=== PATIENT | female | born 1985 | race African-American/Black ===

== ENCOUNTER 2017-10-30 14:26 | Emergency (ER) | payer OTHER ==
--- NOTE | 2017-10-30 14:46 | PDOC ---
Rapid Medical Evaluation Time Seen by Provider: 10/30/17 14:45 Medical Evaluation: Allergies Allergy/AdvReac Type Severity Reaction Status Date / Time No Known Allergies Allergy Verified 10/12/15 09:29 10/30/17 14:45I I have performed a brief in-person evaluation of this patient. The patient presents with a chief complaint of: upper back pain s/p heavy lifting at work yesterday Pertinent physical exam findings:unremarkable I have ordered the following:nothing The patient will proceed to the ED for further evaluation. Discharge Disposition - Diagnosis Upper back strain Qualifiers: Encounter type: initial encounter Qualified Code(s): S29.012A - Strain of muscle and tendon of back wall of thorax, initial encounter - Referrals - Patient Instructions - Post Discharge Activity
[2017-10-30 15:02] VITALS: BP 128/78; PULSE 104; TEMP 98.6; BMI 19.4
[2017-10-30] MEDS ORDERED: KETOROLAC TROMETHAMINE 60 MG/2 ML VIAL IM ONE (16:20)
[2017-10-30] MEDS ORDERED: RANITIDINE HCL 150 MG TABLET (FP) PO ONE (16:20)
[2017-10-30] MEDS ORDERED: KETOROLAC TROMETHAMINE 60 MG/2 ML VIAL ONE (16:22)
[2017-10-30] MEDS ORDERED: RANITIDINE HCL 150 MG TABLET (FP) ONE (16:22)
--- NOTE | 2017-10-30 16:23 | PDOC ---
History of Present Illness - General Chief Complaint: Back Pain Stated Complaint: BACK PAIN Time Seen by Provider: 10/30/17 14:45 - History of Present Illness Initial Comments: 32-year-old female without any significant comorbidities presents for evaluation of back pain. She describes tightness in her thoracic spine after lifting a heavy bucket at work yesterday. She denies any radiating symptoms or prior problems with the back. There are no associated symptoms. 10/30/17 16:20 Past History - Past Medical History Allergies/Adverse Reactions: Allergies Allergy/AdvReac Type Severity Reaction Status Date / Time oxycodone [From Percocet] Allergy Verified 10/30/17 14:53 Home Medications: Ambulatory Orders Cyclobenzaprine HCl [Flexeril 10 mg] 10 mg PO HS PRN #10 tablet 10/30/17 Ibuprofen [Motrin -] 600 mg PO TID #30 tablet 10/30/17 Asthma: Yes (\) Cancer: No Cardiac Disorders: No Diabetes: No HTN: No Seizures: No Thyroid Disease: No - Suicide/Smoking/Psychosocial Hx Smoking History: Never smoked Have you smoked in the past 12 months: No Hx Alcohol Use: No Drug/Substance Use Hx: No Substance Use Type: None Hx Substance Use Treatment: No Review of Systems - Review of Systems Musculoskeletal: Yes: See HPI, Back Pain All Other Systems: Reviewed and Negative *Physical Exam - Vital Signs Last Vital Signs Temp Pulse Resp BP Pulse Ox 98.6 F 104 H 20 128/78 99 10/30/17 14:40 10/30/17 14:40 10/30/17 14:40 10/30/17 14:40 10/30/17 14:40 - Physical Exam Comments: Cervical spine range of motion is within normal limits mildly decreased thoracic range of motion. In both flexion and extension. She has 5 out of 5 strength including EPL interosseous muscles wrist flexion and extension biceps and deltoid in bilateral upper extremities. She has a negative Spurling maneuver no gross sensorimotor deficits. She has minimal thoracic musculature spasm 10/30/17 16:21 Medical Decision Making - Medical Decision Making This is a thoracic spine strain I will give her Toradol and Zantac send her home with a prescription for Flexeril and Motrin and have her follow-up with spine surgery. 10/30/17 16:22 10/30/17 16:37 Patient's pain was relieved with Toradol *DC/Admit/Observation/Transfer Diagnosis at time of Disposition: Upper back strain Qualifiers: Encounter type: initial encounter Qualified Code(s): S29.012A - Strain of muscle and tendon of back wall of thorax, initial encounter - Discharge Dispostion Disposition: HOME Condition at time of disposition: Stable Decision to Admit order: No - Prescriptions Prescriptions: Cyclobenzaprine HCl [Flexeril 10 mg] 10 mg PO HS PRN #10 tablet PRN Reason: Muscle Spasms Ibuprofen [Motrin -] 600 mg PO TID #30 tablet - Referrals Referrals: Coreen Garvin MD [Primary Care Provider] - Cameron Curran MD [Staff Physician] - - Patient Instructions Printed Discharge Instructions: DI for Back Strain or Sprain Additional Instructions: Return to the emergency room should her symptoms worsen or go unresolved. It's important few to follow-up with spine surgery for further evaluation and treatment options. I prescribed few a muscle relaxer which should be taken one tablet prior to bedtime as it will make you tired. Ago also prescribed few an anti-inflammatory which should help with your pain. Please take the anti- inflammatory with food and discontinue if it bothers her stomach. - Post Discharge Activity
== END 2017-10-30 16:39 | disposition home or self-care (01) ==
LOC: JER 14:26 → JERFT 14:26
DX: S29.012A Strain of muscle and tendon of back wall of thorax, initial encounter (principal); X58.XXXA Exposure to other specified factors, initial encounter; Y93.89 Activity, other specified; Y92.9 Unspecified place or not applicable
CPT/HCPCS: 99281-25

== ENCOUNTER 2018-08-05 15:42 | Inpatient (IN) | payer OTHER ==
[2018-08-05 16:14] VITALS: BMI 53.1
[2018-08-05] MEDS ORDERED: IBUPROFEN 400 MG TABLET (FP) PO ONE ×2 (18:46→18:50)
[2018-08-05 19:06] LABS: BASO % 0.5 % (0-2.0); EOS % 2.4 % (0-4.5); HEMATOCRIT 20.3 % (32.4-45.2); LYMPH % 22.7 % (8-40); MCHC 28.7 g/dl (32.0-36.0); MEAN CELL VOLUME 56.5 fl (80-96); MEAN PLT VOLUME 8.8 fl (7.5-11.1); MONO % 6.7 % (3.8-10.2); NEUT % 67.7 % (42.8-82.8); PLATELET COUNT 400 K/MM3 (134-434); RDW 20.6 % (11.6-15.6); WHITE BLOOD COUNT 10.6 K/mm3 (4.0-10.0)
[2018-08-05 19:09] LABS: MCH 16.2 pg (25.7-33.7)
[2018-08-05 19:10] LABS: HEMOGLOBIN 5.8 GM/dL (10.7-15.3)
[2018-08-05 19:32] LABS: ALBUMIN 3.3 g/dl (3.4-5.0); ALK PHOS 101 U/L (45-117); ANION GAP 6 MMOL/L (8-16); BILIRUBIN,TOTAL 0.2 mg/dL (0.2-1); BLOOD UREA NITROGEN 10 mg/dL (7-18); CALCIUM 8.3 mg/dL (8.5-10.1); CHLORIDE 104 mmol/L (98-107); CO2 26 mmol/L (21-32); CREATININE 0.6 mg/dL (0.55-1.3); GLUCOSE,RANDOM 98 mg/dL (74-106); POTASSIUM 3.7 mmol/L (3.5-5.1); SGOT/AST 6 U/L (15-37); SGPT/ALT 14 U/L (13-61); SODIUM 137 mmol/L (136-145); TOT PROT 7.3 g/dl (6.4-8.2)
[2018-08-05 19:36] LABS: ANISOCYTOSIS 2+; PLATELET ESTIMATE ADEQUATE
--- NOTE | 2018-08-05 20:26 | PDOC ---
History of Present Illness - General History Source: Patient, Spouse Exam Limitations: No Limitations <Marie Villar - Last Filed: 08/05/18 20:57> <Cassi Hartley - Last Filed: 08/05/18 22:46> - General Chief Complaint: Chest Pain Stated Complaint: CHEST PAIN Time Seen by Provider: 08/05/18 18:11 - History of Present Illness Initial Comments: 08/05/18 20:57 The patient is a 33 year old female with a past medical history of seasonal asthma who presents to the emergency department for evaluation of chest pain. Patient reports substernal chest pain described as constant, stabbing, and nonradiating, ranked 9/10 in severity over the last 24 hours. Patient states her chest pain began yesterday while she was working in [place]. Patient endorses dyspnea on exertion, specifically with movement, and intermittent episodes of lightheadedness. She states she tried sleeping but was unable to secondary to her pain. Patient denies taking medication for the aforementioned pain. She reports seeing her PCP for a flu shot earlier this month. She denies family history of cardiac disorders, recent strenuous activities, or trauma. Denies headache, fevers, chills, nausea, and vomiting. Denies diarrhea, constipation, urinary urgency/frequency. Denies history of alcohol, cigarette, or drug use. Allergies: No known allergies. Social History: No reported alcohol, cigarette, or drug use. Surgical History: Denies PCP: Not on staff, [address] [place] [address]. (Marie Villar) Past History <Marie Villar - Last Filed: 08/05/18 20:57> - Past Medical History Asthma: Yes (\) Cancer: No Cardiac Disorders: No COPD: No Diabetes: No HTN: No Seizures: No Thyroid Disease: No - Suicide/Smoking/Psychosocial Hx Smoking History: Never smoked Have you smoked in the past 12 months: No Hx Alcohol Use: No Drug/Substance Use Hx: No Substance Use Type: None Hx Substance Use Treatment: No <Cassi Hartley - Last Filed: 08/05/18 22:46> - Past Medical History Allergies/Adverse Reactions: Allergies Allergy/AdvReac Type Severity Reaction Status Date / Time No Known Allergies Allergy Verified 08/05/18 16:10 Review of Systems - Review of Systems Able to Perform ROS?: Yes <Marie Villar - Last Filed: 08/05/18 20:57> <Cassi Hartley - Last Filed: 08/05/18 22:46> - Review of Systems Comments:: 08/05/18 20:57 CONSTITUTIONAL: Absent: fever, chills, diaphoresis, generalized weakness, malaise, loss of appetite HEENT: Absent: rhinorrhea, nasal congestion, throat pain, throat swelling, difficulty swallowing, mouth swelling, ear pain, eye pain, visual Changes CARDIOVASCULAR: (+)Chest pain. (+)lightheadedness. Absent: syncope, palpitations, irregular heart rate, peripheral edema RESPIRATORY: Absent: cough, shortness of breath, dyspnea with exertion, orthopnea, wheezing, stridor, hemoptysis GASTROINTESTINAL: Absent: abdominal pain, abdominal distension, nausea, vomiting, diarrhea, constipation, melena, hematochezia GENITOURINARY: Absent: dysuria, frequency, urgency, hesitancy, hematuria, flank pain, genital pain MUSCULOSKELETAL: Absent: myalgia, arthralgia, joint swelling SKIN: Absent: rash, itching, pallor HEMATOLOGIC/IMMUNOLOGIC: Absent: easy bleeding, easy bruising, lymphadenopathy, frequent infections ENDOCRINE: Absent: unexplained weight gain, unexplained weight loss, heat intolerance, cold intolerance NEUROLOGIC: Absent: headache, focal weakness or paresthesias, dizziness, unsteady gait, seizure, mental status changes, bladder or bowel incontinence PSYCHIATRIC: Absent: anxiety, depression, suicidal or homicidal ideation, hallucinations. (Marei Villar) *Physical Exam <Marie Villar - Last Filed: 08/05/18 20:57> <Cassi Hartley - Last Filed: 08/05/18 22:46> - Vital Signs Last Vital Signs Temp Pulse Resp BP Pulse Ox 98 F 93 H 18 144/73 100 08/05/18 16:11 08/05/18 16:11 08/05/18 16:11 08/05/18 16:11 08/05/18 16:11 - Physical Exam Comments: 08/05/18 20:57 GENERAL: Well developed, morbidly obese. Awake and alert. No acute distress. HEENT: Normocephalic, atraumatic. PERRLA, EOMI. No conjunctival pallor. Sclera are non- icteric. Moist mucous membranes. NECK: Supple. Full ROM. No JVD. Carotid pulses 2+ and symmetric, without bruits. No thyromegaly. No lymphadenopathy. CARDIOVASCULAR: Regular rate and rhythm. No murmurs, rubs, or gallops. Distal pulses are 2+ and symmetric. PULMONARY: No evidence of respiratory distress. Lungs clear to auscultation bilaterally. No wheezing, rales or rhonchi. ABDOMINAL: Protuberant. Soft. Non-tender. No rebound or guarding. No organomegaly. MUSCULOSKELETAL Normal range of motion at all joints. No bony deformities or tenderness. No CVA tenderness. EXTREMITIES: No cyanosis. No clubbing. No edema. No calf tenderness. SKIN: Warm and dry. Normal capillary refill. No rashes. No jaundice. NEUROLOGICAL: Alert, awake, appropriate. Cranial nerves 2-12 intact. No deficits to light touch and temperature in face, upper extremities and lower extremities. No motor deficits in the in face, upper extremities and lower extremities. Normoreflexic in the upper and lower extremities. Normal speech. Toes are down- going bilaterally. Gait is normal without ataxia. PSYCHIATRIC: Cooperative. Good eye contact. Appropriate mood and affect. (Marie Villar) - Procedure Monitoring Vital Signs: Procedure Monitoring Vital Signs Temperature 98 F 08/05/18 16:11 Pulse Rate 93 H 08/05/18 16:11 Respiratory Rate 18 08/05/18 16:11 Blood Pressure 144/73 08/05/18 16:11 O2 Sat by Pulse Oximetry (%) 100 08/05/18 16:11 ED Treatment Course - LABORATORY CBC & Chemistry Diagram: 08/05/18 18:56 08/05/18 18:56 <Marie Villar - Last Filed: 08/05/18 20:57> - LABORATORY CBC & Chemistry Diagram: 08/05/18 18:56 08/05/18 18:56 <Cassi Hartley - Last Filed: 08/05/18 22:46> - ADDITIONAL ORDERS Additional order review: Laboratory Results 08/05/18 08/05/18 21:08 18:56 Sodium 137 Potassium 3.7 Chloride 104 Carbon Dioxide 26 Anion Gap 6 L BUN 10 Creatinine 0.6 Creat Clearance w eGFR 115.85 Random Glucose 98 Calcium 8.3 L Total Bilirubin 0.2 AST 6 L ALT 14 Alkaline Phosphatase 101 Creatine Kinase 34 Troponin I < 0.02 Total Protein 7.3 Albumin 3.3 L Blood Type O POSITIVE Antibody Screen Negative Crossmatch See Detail 08/05/18 18:56 RBC 3.60 MCV 56.5 L MCHC 28.7 L RDW 20.6 H MPV 8.8 Neutrophils % 67.7 Lymphocytes % 22.7 D Monocytes % 6.7 Eosinophils % 2.4 D Basophils % 0.5 - Medications Given in the ED: ED Medications Discontinued Medications Generic Name Dose Route Start Last Admin Trade Name José PRN Reason Stop Dose Admin Ibuprofen 800 mg 08/05/18 18:46 08/05/18 19:00 Motrin - PO 08/05/18 18:47 800 mg ONCE ONE Administration *DC/Admit/Observation/Transfer <Marie Villar - Last Filed: 08/05/18 20:57> - Discharge Dispostion Decision to Admit order: Yes <Cassi Hartley - Last Filed: 08/05/18 22:46> Diagnosis at time of Disposition: Exertional dyspnea, Substernal chest pain, Morbid obesity Anemia Qualifiers: Anemia type: other cause Other causes of anemia: other cause, not classified Qualified Code(s): D64.89 - Other specified anemias - Referrals Referrals: Marques Clayton MD [Primary Care Provider] - - Patient Instructions - Post Discharge Activity - Attestations Scribe Attestion: Documentation prepared by Marie Villar, acting as medical legal investigator for Cassi Hartley MD. (Marie Villar)
[2018-08-05] MEDS ORDERED: POLYETHYLENE GLYCOL 3350 119 GM BTL PO PRN (22:44)
[2018-08-05] MEDS ORDERED: ACETAMINOPHEN 325 MG TABLET (FP) PO PRN (22:44)
[2018-08-05] MEDS ORDERED: SODIUM CHLORIDE 1,000 ML IV SCH (22:45)
[2018-08-05 23:31] LABS: URINE APPEARANCE SLCLOUDY; URINE BILIRUBIN NEGATIVE (<2.0 mg/dL); URINE COLOR YELLOW; URINE GLUCOSE (UA) NEGATIVE (NEGATIVE); URINE KETONE NEGATIVE (NEGATIVE); URINE LEUK ESTERASE NEGATIVE (NEGATIVE); URINE NITRITE NEGATIVE (NEGATIVE); URINE PROTEIN 1+ (NEGATIVE); URINE UROBILINOGEN NEGATIVE mg/dL (0.2-1.0)
--- NOTE | 2018-08-05 23:33 | HP ---
Admitting History and Physical - Primary Care Physician PCP: Marques Clayton - Admission Chief Complaint: CHEST PAIN History of Present Illness: 33 YEAR OLD female with h/o anemia not on iron therapy for "many yrs" presents to ED for evaluation of mid-sternal chest pain, fatigue, dizziness and dyspnea on exertion x 2 weeks. Pt has never felt these symptoms before and denies fever/ chills, abd pain/N/D/SWAN, syncope or other neurological symptoms. Pt attempts to relieve symptoms with sleep, but upon awakening and performing ADLs she notes excessive fatigue and dyspnea. Over the last three months, Ms. Leavitt reports her menses have become increasingly heavy and longer. Since May 2018, her menses last 7days instead of 4 and she had noted increased clot burden as evidenced by changing at least 10 soaked pads per period day. 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 LMP 07/17/18. no hormonal contraceptive use and no prior miscarriage. In ED: Vitals BP 144/73, HR 93. T 98. RR 18. Wt 140kg, O2 sat 100% H/H 5.8/20.3, MCV 56. Trop < 0.02. EKG NSR 98bpm. non-ischemic. Urine HCG negative. Pt ordered for PRBC transfusion and admitted for further management. 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 Exercise: none. HCP : Steph Hunt [phone] Home Medications - Allergies Allergies/Adverse Reactions: Allergies Allergy/AdvReac Type Severity Reaction Status Date / Time No Known Allergies Allergy Verified 08/05/18 16:10 Family Disease History - Family Disease History Family Disease History: Other: Father (alive uknown), Mother (alive (46) well) Review of Systems - Review of Systems Constitutional: reports: Weakness Eyes: reports: No Symptoms HENT: reports: No Symptoms Neck: reports: No Symptoms Cardiovascular: reports: Chest Pain, Shortness of Breath Respiratory: reports: SOB on Exertion Gastrointestinal: reports: No Symptoms Genitourinary: reports: No Symptoms Breasts: reports: No Symptoms Reported Musculoskeletal: reports: No Symptoms Integumentary: reports: No Symptoms Neurological: reports: Dizziness, Weakness Endocrine: reports: No Symptoms Hematology/Lymphatic: reports: No Symptoms Psychiatric: reports: Altered Sleep Pattern Physical Examination Vital Signs: Vital Signs Temperature 98 F 08/05/18 16:11 Pulse Rate 93 H 08/05/18 16:11 Respiratory Rate 18 08/05/18 16:11 Blood Pressure 144/73 08/05/18 16:11 O2 Sat by Pulse Oximetry (%) 100 08/05/18 16:11 Constitutional: Yes: No Distress, Calm, Obese Eyes: Yes: EOM Intact, PERRL, Other (pale conjunctiva) HENT: Yes: Atraumatic, Normocephalic, Other (pale oral mucosa) Neck: Yes: Supple, Trachea Midline Cardiovascular: Yes: Regular Rate and Rhythm, Murmur (systolic murmur A/P region ) Respiratory: Yes: Regular, CTA Bilaterally Gastrointestinal: Yes: Soft, Abdomen, Obese ...Rectal Exam: Yes: Deferred Musculoskeletal: Yes: WNL Extremities: Yes: WNL Edema: No Peripheral Pulses WNL: Yes Peripheral Pulses: Left Radial: 2+, Right Radial: 2+ Integumentary: Yes: WNL Neurological: Yes: Alert, Oriented ...Motor Strength: WNL Psychiatric: Yes: Alert, Oriented Labs: CBC, BMP 08/05/18 18:56 08/05/18 18:56 Imaging - Results Ultrasound: Pending (transvaginal US ordered) Problem List - Problems (1) Menorrhagia Assessment/Plan: transvaginal sono ordered INSIDE UPHOLSTERER consult Code(s): N92.0 - EXCESSIVE AND FREQUENT MENSTRUATION WITH REGULAR CYCLE (2) Anemia Assessment/Plan: repeat CBC to confirm low H/H, iron studies and hgb electrophoresis two units PRBC overnight start iron + vitamin C daily heme consult Code(s): D64.9 - ANEMIA, UNSPECIFIED Qualifiers: Anemia type: other cause Other causes of anemia: other cause, not classified Qualified Code(s): D64.89 - Other specified anemias (3) Exertional dyspnea Assessment/Plan: echo ordered 2L NC PRN Code(s): R06.09 - OTHER FORMS OF DYSPNEA (4) Substernal chest pain Assessment/Plan: Serial EKGs trend troponins consider cards consult if cardiac enzymes + Code(s): R07.2 - PRECORDIAL PAIN Assessment/Plan PPX: - bowel regimen with senna and colace - H2B daily - No AC due to low H/H, pt can ambulate DISPO -Full code Visit type - Emergency Visit Emergency Visit: Yes Care time: The patient presented to the Emergency Department on the above date and was hospitalized for further evaluation of their emergent condition. - New Patient This patient is new to me today: Yes Date on this admission: 08/06/18 - Critical Care Critical Care patient: No
[2018-08-05 23:36] LABS: EPI CELLS MODERATE /HPF (FEW); URINE MUCUS FEW
[2018-08-05] MEDS ORDERED: MAG HYDROX/AL HYDROX/SIMETH 30 ML UNIT-DOSE CUP PO PRN (23:40)
[2018-08-06 06:50] LABS: BASO % 0.5 % (0-2.0); EOS % 1.7 % (0-4.5); HEMATOCRIT 20.6 % (32.4-45.2); LYMPH % 21.3 % (8-40); MCHC 29.8 g/dl (32.0-36.0); MEAN CELL VOLUME 58.2 fl (80-96); MEAN PLT VOLUME 9.1 fl (7.5-11.1); MONO % 5.7 % (3.8-10.2); NEUT % 70.8 % (42.8-82.8); PLATELET COUNT 379 K/MM3 (134-434); RBC 3.53 M/mm3 (3.60-5.2); RDW 22.4 % (11.6-15.6); WHITE BLOOD COUNT 11.4 K/mm3 (4.0-10.0)
[2018-08-06 07:20] LABS: HEMOGLOBIN 6.1 GM/dL (10.7-15.3); MCH 17.4 pg (25.7-33.7)
[2018-08-06 07:31] LABS: INR 1.04 (0.83-1.09); PROTHROMBIN TIME (PATIENT) 12.3 SEC (9.7-13.0)
[2018-08-06 07:33] LABS: ACTIVATED PTT 30.7 SECONDS (25.2-36.5)
[2018-08-06 07:53] LABS: ALBUMIN 3.3 g/dl (3.4-5.0); ALK PHOS 98 U/L (45-117); ANION GAP 6 MMOL/L (8-16); BLOOD UREA NITROGEN 10 mg/dL (7-18); CALCIUM 8.4 mg/dL (8.5-10.1); CHLORIDE 105 mmol/L (98-107); CO2 24 mmol/L (21-32); CREATININE 0.5 mg/dL (0.55-1.3); GLUCOSE,RANDOM 91 mg/dL (74-106); MAGNESIUM 2.2 mg/dL (1.8-2.4); PHOSPHOROUS 3.8 mg/dL (2.5-4.9); POTASSIUM 3.9 mmol/L (3.5-5.1); SGOT/AST 7 U/L (15-37); SGPT/ALT 14 U/L (13-61); SODIUM 135 mmol/L (136-145); TOT PROT 7.3 g/dl (6.4-8.2)
[2018-08-06] MEDS ORDERED: DOCUSATE SODIUM 100 MG CAPSULE (FP) PO SCH (10:00)
[2018-08-06] MEDS ORDERED: RANITIDINE HCL 150 MG TABLET (FP) PO SCH ×2 (10:00)
[2018-08-06] MEDS ORDERED: FERROUS GLUCONATE 324 MG TAB (FP) PO SCH (10:00)
[2018-08-06] MEDS ORDERED: ASCORBIC ACID 500 MG TABLET (FP) PO SCH (10:00)
--- NOTE | 2018-08-06 11:16 | PN ---
Progress Note, Physician Chief Complaint: Anemia History of Present Illness: Previous notes and events reviewed awake and alert NAD Hg 6.1 after transfused 1U PRBC, 2nd unit currently transfusing denies chest pain, dizziness, palpitations - Current Medication List Current Medications: Active Medications Acetaminophen (Tylenol -) 650 mg PO Q6H PRN PRN Reason: FEVER Al Hydroxide/Mg Hydroxide (Mylanta Oral Suspension -) 30 ml PO Q6H PRN PRN Reason: DYSPEPSIA Ascorbic Acid (Vitamin C -) 500 mg PO DAILY [facility] Last Admin: 08/06/18 10:19 Dose: 500 mg Docusate Sodium (Colace -) 100 mg PO DAILY [facility] Last Admin: 08/06/18 10:19 Dose: 100 mg Ferrous Gluconate (Fergon -) 324 mg PO DAILY [facility] Last Admin: 08/06/18 10:19 Dose: 324 mg Sodium Chloride (Normal Saline -) 1,000 mls @ 100 mls/hr IV ASDIR [facility] Last Admin: 08/05/18 23:24 Dose: 100 mls/hr Polyethylene Glycol (Miralax (For Daily Use) -) 17 gm PO DAILY PRN PRN Reason: CONSTIPATION Ranitidine HCl (Zantac -) 150 mg PO DAILY [facility] Last Admin: 08/06/18 10:19 Dose: 150 mg Senna (Senna -) 2 tab PO [facility] - Objective Vital Signs: Vital Signs Temperature 97.7 F 08/06/18 10:02 Pulse Rate 85 08/06/18 10:02 Respiratory Rate 18 08/06/18 10:02 Blood Pressure 112/54 L 08/06/18 10:02 O2 Sat by Pulse Oximetry (%) 99 08/06/18 10:02 Constitutional: Yes: No Distress, Calm, Obese Eyes: Yes: Conjunctiva Clear HENT: Yes: Atraumatic Cardiovascular: Yes: Regular Rate and Rhythm Respiratory: Yes: Regular, CTA Bilaterally Gastrointestinal: Yes: Normal Bowel Sounds, Soft, Abdomen, Obese Extremities: Yes: WNL Edema: No Neurological: Yes: Alert, Oriented Psychiatric: Yes: Alert, Oriented Labs: CBC, BMP 08/06/18 05:25 08/06/18 05:25 INR, PTT INR 1.04 (0.83-1.09) 08/06/18 05:25 Problem List - Problems (1) Anemia Assessment/Plan: -Hg 5.8-6.1 after 1 unit PRBC transfused, currently receiving 2nd unit -repeat CBC after 2nd unit PRBC finished transfusing -Hematology consult placed -iron studies and Hg electrophoresis pending -ferrous sulfate daily Code(s): D64.9 - ANEMIA, UNSPECIFIED Qualifiers: Anemia type: other cause Other causes of anemia: other cause, not classified Qualified Code(s): D64.89 - Other specified anemias (2) Menorrhagia Assessment/Plan: -BUILDER OPERATOR consult -transvaginal US show fibroid uterus and small right ovarion cyst Code(s): N92.0 - EXCESSIVE AND FREQUENT MENSTRUATION WITH REGULAR CYCLE (3) Substernal chest pain Assessment/Plan: -serial EKGs -troponin neg x 2 Code(s): R07.2 - PRECORDIAL PAIN (4) Exertional dyspnea Assessment/Plan: -echo ordered -O2 via NC PRN for SOB Code(s): R06.09 - OTHER FORMS OF DYSPNEA Assessment/Plan see problem list dvt ppx
--- NOTE | 2018-08-06 12:09 | EKG ---
Test Reason : Blood Pressure : / mmHG Vent. Rate : 098 BPM Atrial Rate : 098 BPM P-R Int : 152 ms QRS Dur : 102 ms QT Int : 356 ms P-R-T Axes : 048 015 026 degrees QTc Int : 454 ms NORMAL SINUS RHYTHM POSSIBLE LEFT ATRIAL ENLARGEMENT INCOMPLETE RIGHT BUNDLE BRANCH BLOCK BORDERLINE ECG NO PREVIOUS ECGS AVAILABLE Confirmed by PATY KEENE MD ([id number]) on 08/06/2018 12:08:44 PM Referred By: Confirmed By:PATY KEENE MD
--- NOTE | 2018-08-06 14:38 | CON.OBG ---
Consult Consult Specialty:: TROLLEY WIRE INSTALLER Reason for Consultation:: Prolonged menses / Anemia - History of Present Illness Chief Complaint: Dizziness History of Present Illness: 33 YEAR OLD female with h/o anemia not on iron therapy for "many yrs" presents to ED for evaluation of mid-sternal chest pain, fatigue, dizziness and dyspnea on exertion x 2 weeks. Pt has never felt these symptoms before and denies fever/ chills, abd pain/N/D/SWAN, syncope or other neurological symptoms. Pt attempts to relieve symptoms with sleep, but upon awakening and performing ADLs she notes excessive fatigue and dyspnea. Over the last three months, Ms. Leavitt reports her menses have become increasingly heavy and longer. Since May 2018, her menses last 7days instead of 4 and she had noted increased clot burden as evidenced by changing at least 10 soaked pads per period day. 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 LMP 07/17/18. no hormonal contraceptive use and no prior miscarriage. I came to see patient, she's receiving blood transfusion. She states that she's feeling much better and wants to be discharge home to be with her young children. Pelvic sonogram reviewed, there's evidence of an enlarged uterus c/o Leiomyoma of the uterus. Extensive discussion with patient. She was advised to see a TROLLEY WIRE INSTALLER as outpatient after blood transfusion. 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 History of Recent Travel: No Home Medications - Allergies Allergies/Adverse Reactions: Allergies Allergy/AdvReac Type Severity Reaction Status Date / Time No Known Allergies Allergy Verified 08/05/18 16:10 - Home Medications Home Medications: Ambulatory Orders NK [No Known Home Medication] 08/06/18 Family Disease History - Family Disease History Family History: Unremarkable Family Disease History: Other: Father (alive uknown), Mother (alive (46) well) Review of Systems - Review of Systems Constitutional: reports: No Symptoms Eyes: reports: No Symptoms HENT: reports: No Symptoms Neck: reports: No Symptoms Cardiovascular: reports: No Symptoms Respiratory: reports: No Symptoms Gastrointestinal: reports: No Symptoms Breasts: reports: No Symptoms Reported Musculoskeletal: reports: No Symptoms Integumentary: reports: No Symptoms Neurological: reports: No Symptoms Psychiatric: reports: No Symptoms Pain Intensity: 0 Physical Exam-TROLLEY WIRE INSTALLER Vital Signs: Vital Signs Temperature 97.7 F 08/06/18 10:02 Pulse Rate 85 08/06/18 10:02 Respiratory Rate 18 08/06/18 10:02 Blood Pressure 112/54 L 08/06/18 10:02 O2 Sat by Pulse Oximetry (%) 99 08/06/18 10:02 Constitutional: Yes: Calm, Obese Eyes: Yes: Conjunctiva Clear HENT: Yes: Atraumatic Neck: Yes: Supple Cardiovascular: Yes: Regular Rate and Rhythm Respiratory: Yes: Regular Gastrointestinal: Yes: Normal Bowel Sounds Pelvis: Yes: WNL External Genitalia: Yes: Normal Vaginal Exam: Yes: Normal Cervix: Yes: Normal Uterus: Yes: Firm Neurological: Yes: Alert, Oriented Psychiatric: Yes: Alert, Oriented Labs: CBC, BMP 08/06/18 05:25 08/06/18 05:25 Assessment/Plan Menorrhagia Severe anemia Leiomyoma of the uterus Status post blood transfusion To be seen by TROLLEY WIRE INSTALLER as outpatient for possible myomectomy.
--- NOTE | 2018-08-06 15:45 | ECHO ---
Name: KESHIA, NARISSA Exam:Adult Echocardiogram Study Date: 08/06/2018 01:22 PM Age: 33 yrs Height: 64 in Weight: 310 lb BSA: 2.4 m2 MMode/2D Measurements & Calculations IVSd: 0.80 cm Ao root diam: 2.4 cm LVIDd: 5.4 cm LA dimension: 3.8 cm LVIDs: 3.3 cm LVPWd: 0.79 cm EDV(Teich): 139.1 ml LVOT diam: 2.0 cm ESV(Teich): 43.0 ml LAV (MOD-bp): 85.8 ml Doppler Measurements & Calculations Ao V2 max: 293.9 cm/sec LV V1 max P.2 mmHg Ao max P.5 mmHg LV V1 mean P.2 mmHg Ao V2 mean: 196.7 cm/sec LV V1 max: 113.7 cm/sec Ao mean P.2 mmHg LV V1 mean: 84.3 cm/sec Ao V2 VTI: 62.3 cm LV V1 VTI: 26.1 cm ENMA(I,D): 1.3 cm2 ENMA(V,D): 1.2 cm2 MR max eric: 431.4 cm/sec SV(LVOT): 80.1 ml MR max P.5 mmHg TR max eric: 243.0 cm/sec PA V2 max: 139.8 cm/sec TR max P.8 mmHg PA max P.8 mmHg Med Peak E' Eric: 11.2 cm/sec Lat Peak E' Eric: 13.1 cm/sec Procedure A two-dimensional transthoracic echocardiogram with color flow and Doppler was performed. Left Ventricle The left ventricular size, thickness and function are normal. The left ventricular ejection fraction is normal. Left Ventricular Filling pattern is normal for age. The left ventricular wall motion is avril l. Right Ventricle The right ventricle is normal in size and function. Atria Normal left and right atrial size and function. The atrial septum is aneurysmal. Mitral Valve There is mild mitral valve thickening. There is no mitral valve stenosis. There is trace to mild mitr al regurgitation. Tricuspid Valve The tricuspid valve is normal in structure and function. There is no tricuspid stenosis. There is mod erate tricuspid regurgitation. Right ventricular systolic pressure is normal. Aortic Valve The aortic valve is not well visualized. No hemodynamically significant valvular aortic stenosis. No aortic regurgitation is present. Pulmonic Valve The pulmonic valve is not well visualized. Great Vessels The aortic root is normal size. Pericardium/Pleura There is no pericardial effusion. Interpretation Summary The left ventricular size, thickness and function are normal The left ventricular ejection fraction is normal. The left ventricular wall motion is normal. Right ventricular systolic pressure is normal. There is moderate tricuspid regurgitation. The atrial septum is aneurysmal. Normal left and right atrial size and function. Left Ventricular Filling pattern is normal for age. There is trace to mild mitral regurgitation. MD Bill Shea 08/06/2018 03:44 PM
[2018-08-06 17:35] LABS: BASO % 0.5 % (0-2.0); EOS % 1.6 % (0-4.5); HEMATOCRIT 23.3 % (32.4-45.2); HEMOGLOBIN 7.1 GM/dL (10.7-15.3); LYMPH % 17.8 % (8-40); MCHC 30.4 g/dl (32.0-36.0); MEAN CELL VOLUME 60.4 fl (80-96); MEAN PLT VOLUME 8.7 fl (7.5-11.1); MONO % 4.6 % (3.8-10.2); NEUT % 75.5 % (42.8-82.8); PLATELET COUNT 379 K/MM3 (134-434); RBC 3.86 M/mm3 (3.60-5.2); RDW 25.7 % (11.6-15.6); WHITE BLOOD COUNT 11.3 K/mm3 (4.0-10.0)
[2018-08-06 17:37] LABS: ADD RBC MORPHOLOGY YES; MCH 18.4 pg (25.7-33.7)
[2018-08-06 18:00] LABS: ANISOCYTOSIS 3+; OVALOCYTE 1+; PLATELET ESTIMATE ADEQUATE; TARGET CELLS 1+
[2018-08-06 19:46] VITALS: BP 143/70; PULSE 85; TEMP 98.1
--- NOTE | 2018-08-06 20:00 | PN ---
Progress Note (short form) - Note Progress Note: Patient seen and examined 33 year old female presents with chest pain and SOB with profound anemia with Hb 5.8 g. Has received 2 units of packed cells and chest pain and SOB have abated. History of menorrhagia. Menarche at age 11 with normal menses q month until June and July of this year. Usual 4 day period now 7 days with clots., Takes occasional advil for headaches otherwise no meds. No family history of cancer or blood disorders. Born in [facility] and came to [facility] at age 18. No smoking, drinking or illicit drugs. No noxious exposures. Last Vital Signs Temp Pulse Resp BP Pulse Ox 98.1 F 85 19 143/70 98 08/06/18 19:46 08/06/18 19:46 08/06/18 19:46 08/06/18 19:46 08/06/18 19:46 HEENT: BELLA, EOM Intact Oropharynx: No thrush, No mucositis Neck: Supple Nodes: Without adenopathy Breasts: Without masses Cor: RSR, No murmurs, No gallops Lungs: Clear to P&A Abd: Soft, Normal bowel sounds, No organomegaly Ext:No significant edema Skin: No rashes, Integument intact s/p 2 units of packed cells Sono - small right ovarian cyst and large fibroid. Current Medications Generic Name Dose Route Start Last Admin Trade Name Freq PRN Reason Stop Dose Admin Acetaminophen 650 mg 08/05/18 22:44 Tylenol - PO Q6H PRN FEVER Al Hydroxide/Mg Hydroxide 30 ml 08/05/18 23:40 Mylanta Oral Suspension - PO Q6H PRN DYSPEPSIA Ascorbic Acid 500 mg 08/06/18 10:00 08/06/18 10:19 Vitamin C - PO 500 mg DAILY DARYL Administration Docusate Sodium 100 mg 08/06/18 10:00 08/06/18 10:19 Colace - PO 100 mg DAILY DARYL Administration Ferrous Gluconate 324 mg 08/06/18 10:00 08/06/18 10:19 Fergon - PO 324 mg DAILY DARYL Administration Sodium Chloride 1,000 mls @ 100 mls/hr 08/05/18 22:45 08/05/18 23:24 Normal Saline - IV 100 mls/hr ASDIR DARYL Administration Polyethylene Glycol 17 gm 08/05/18 22:44 Miralax (For Daily Use) - PO DAILY PRN CONSTIPATION Ranitidine HCl 150 mg 08/06/18 10:00 08/06/18 10:19 Zantac - PO 150 mg DAILY DARYL Administration Senna 2 tab 08/06/18 22:00 Senna - PO HS DARYL CBC, BMP 08/06/18 17:20 08/06/18 05:25 Impression : Hypo/micro anemia likely secondary to blood loss from menorrhagia. S/P 2 units of packed cells. If patient remains would give IV venofer. 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 HFE ordered. Will add celiac panel for Fe++ deficiency.
--- NOTE | 2018-08-06 20:24 | CONS ---
DATE OF CONSULTATION: 08/06/2018 This 33-year-old female was seen in the emergency room. She presented with significant anemia with chest pain and shortness of breath. Initial hemoglobin was 5.8. Subsequently, the patient has received 2 units of packed cells and the chest pain and shortness of breath have improved. SOCIAL HISTORY: The patient was born in [facility] and came to the [facility] at age 18. She works at [employer]. She is a nonsmoker, nondrinker, and denies illicit drugs. She has 3 children. FAMILY HISTORY: Includes a mother with diabetes. Father unknown. No history of cancer or blood problems in the family. MEDICATIONS: Include Motrin for headaches. ALLERGIES: There are no known allergies. Patient has no epistaxis. She has no GI or rectal bleeding. Patient had menarche at age 18. She has monthly periods for 4 days. In June or July had heavier periods with menses x7 days with clots on the last 1-2 days on both occasions. Patient underwent a pelvic and transvaginal sonogram with a small right ovarian cyst and large fibroids. REVIEW OF SYSTEMS: Some headaches. No diplopia. No epistaxis. No dysphagia. No chest pain or shortness of breath, status post 2 units, but previously presented with that. No nausea, vomiting, diarrhea, constipation, or melena. No dysuria or hematuria. No back pain, lung pain. No numbness or tingling. PHYSICAL EXAMINATION: General: The patient is obese. Vital Signs: BP 143/70, pulse 85, respiratory rate 19, afebrile. HEENT: PERRLA, EOM intact. Oropharynx unremarkable. Neck: No cervical or supraclavicular nodes. Lungs: Clear to percussion and auscultation without rales or rhonchi. Cardiac: RSR without murmurs or gallops. Breasts: Pendulous. No dominant masses, dimpling, or retraction. Abdomen: Soft, no organomegaly or masses. Extremities: No significant edema. LABORATORY: WBC 10.6, hemoglobin 5.8, hematocrit 20.3, MCV 56, MCH 16.2, platelets 400,000, 67 polys, 22 lymphocytes, 6 monocytes, 2 eosinophils, 3+ hyperchromia. Transfusion of packed cells showed hemoglobin 7.1, WBC 11.3, MCV 60, platelets 379,000. Differential showed 75 polys, 18 lymphocytes, 4 monocytes. INR 1.04. Chemistries: 135 sodium, potassium 3.9, chloride 105, CO2 24, creatinine 0.5. Glucose 91, calcium 8.4, phosphorous 3.8, magnesium 2.2. Iron studies are pending. Bilirubin 1, AST 7, ALT 14, alkaline phosphatase 98, protein 7.3, albumin 3.3. Urine shows 1+ proteinuria. IMPRESSION: A 33-year-old who presents with menorrhagia with severe hypochromic microcytic anemia compatible with iron deficiency, likely secondary to fibroids. Gynecologic examination followup seems appropriate. Hemoglobin electrophoresis, celiac disease. Patient can receive IV Venofer if she remains in the hospital. Otherwise, overlying therapy and follow up with PHYSICAL THERAPY PROFESSOR. Thank you. BOO LOPEZ M.D. SOCO/[id number]
--- NOTE | 2018-08-06 20:44 | HOSP ---
Subjective - Review of Symptoms Events since last encounter: Hospitalist Encounter 19:45 Was notified by the RN that the patient requests to sign out AMA, due to childcare issues Subjective: Arrived to the holding room, patient reports having early childhood educator aide issues and is feeling better and wants to leave. Patient denies SOB, CP, palpitations, lightheadedness, dizziness. VSS, patient ambulated in the holding area with a steady gait. Patient advised of risks and dangers of leaving the hospital- Syncope, . Patient expressed understanding. Patient was advised to f/u with her PCP, GLOBAL LEAD and Eyeglass Lens Generator Patient signed AMA Rx- sent to [facility]- Ferrous Sulfate, Colace Physical Examination Vital Signs: Vital Signs Temperature 98.1 F 08/06/18 19:46 Pulse Rate 85 08/06/18 19:46 Respiratory Rate 08/06/18 19:46 Blood Pressure 143/70 08/06/18 19:46 O2 Sat by Pulse Oximetry (%) 98 08/06/18 19:46 Constitutional: Yes: Well Nourished, No Distress, Calm, Obese Eyes: Yes: WNL, Conjunctiva Clear, EOM Intact, PERRL HENT: Yes: WNL, Atraumatic, Normocephalic Neck: Yes: WNL, Supple, Trachea Midline Cardiovascular: Yes: WNL, Regular Rate and Rhythm, S1, S2 Respiratory: Yes: WNL, Regular, CTA Bilaterally Gastrointestinal: Yes: WNL, Normal Bowel Sounds, Soft, Abdomen, Obese Musculoskeletal: Yes: WNL Extremities: Yes: WNL Neurological: Yes: WNL, Alert, Oriented ...Motor Strength: WNL Psychiatric: Yes: WNL, Alert, Oriented Labs: CBC, BMP 08/06/18 17:20 08/06/18 05:25
[2018-08-06] MEDS ORDERED: SENNOSIDES 8.6MG TABLET (FP) PO SCH (22:00)
[2018-08-07 04:15] LABS: SERUM IRON SATURATION 22 % (15-55); TOTAL IRON BINDING CAPACITY 504 ug/dL (250-450); UIBC 392 ug/dL (131-425)
--- NOTE | 2018-08-07 09:10 | DS ---
Physical Examination Vital Signs: Vital Signs Temperature 98.1 F 08/06/18 19:46 Pulse Rate 85 08/06/18 19:46 Respiratory Rate 19 08/06/18 19:46 Blood Pressure 143/70 08/06/18 19:46 O2 Sat by Pulse Oximetry (%) 98 08/06/18 19:46 Findings/Remarks: SIGNED AMA Labs: CBC, BMP 08/06/18 17:20 08/06/18 05:25 Discharge Summary Reason For Visit: CHEST PAIN ANEMIA MORBID OBESITY DYSPNEA ON EXERT Current Active Problems Anemia (Acute) Exertional dyspnea (Acute) Menorrhagia (Acute) Morbid obesity (Acute) Substernal chest pain (Acute) Condition: Unchanged/Unknown - Instructions Diet, Activity, Other Instructions: Follow Up with your PCP in 1-2 days Follow Up with MISCELLANEOUS MACHINE OPERATOR, Hematology, Cardiology this week. Return to the ED for Chest Pain, SOB, Dizziness or any other worsening condition Take your Iron and Stool Softener as prescribed Disposition: AGAINST MEDICAL ADVICE - Home Medications Comprehensive Discharge Medication List: Ambulatory Orders Docusate Sodium [Colace] 100 mg PO DAILY #30 capsule 08/06/18 Ferrous Sulfate [Iron] 325 mg PO DAILY #30 tablet 08/06/18
[2018-08-08 14:14] LABS: HGB SOLUBILITY Negative (Negative); Hgb C 0 % (0.0); Hgb F 0 % (0.0-2.0); Hgb S 0 % (0.0)
== END 2018-08-06 21:03 | disposition left against medical advice (07) | DRG 663 ==
LOC: JER 15:42 → JERBED 22:46 → OBSVTOIN 08-06 04:30
PROVIDERS: ADMIT Internal Medicine; ATTEND Family Medicine
PROC: 30233N1 Transfusion of Nonautologous Red Blood Cells into Peripheral Vein, Percutaneous Approach (ICD-10-PCS; principal; 2018-08-05)
DX: D50.0 Iron deficiency anemia secondary to blood loss (chronic) (principal); E66.01 Morbid (severe) obesity due to excess calories; Z68.43 Body mass index [BMI] 50.0-59.9, adult; N92.0 Excessive and frequent menstruation with regular cycle; R06.09 Other forms of dyspnea; D64.89 Other specified anemias; D25.9 Leiomyoma of uterus, unspecified
CPT/HCPCS: 36415; 36430; 36511; 76830-TC; 80053; 81003; 81015; 82550; 82553; 82728; 83021; 83036; 83540; 83550; 83735; 84100; 84479; 84484; 84703; 85025; 85610; 85660; 85730; 86850; 86900; 86901; 86922; 93005; 93010; 93306-TC; 99284-25; G0378; J7030; P9038; P9058

== ENCOUNTER 2019-01-08 18:13 | Emergency (ER) | payer OTHER ==
[2019-01-08 18:32] VITALS: BP 106/80; PULSE 90; TEMP 98.1; BMI 57.8
--- NOTE | 2019-01-08 18:34 | PDOC ---
Rapid Medical Evaluation Chief Complaint: Pain Time Seen by Provider: 01/08/19 18:31 Medical Evaluation: Allergies Allergy/AdvReac Type Severity Reaction Status Date / Time No Known Allergies Allergy Verified 01/08/19 18:25 Vital Signs Temp Pulse Resp BP Pulse Ox 98.1 F 90 17 106/80 100 01/08/19 18:25 01/08/19 18:25 01/08/19 18:25 01/08/19 18:25 01/08/19 18:25 01/08/19 18:31 PT C/O: lower abd cramping and bleeding, hx fibroids pending removal , here to get something for pain since psychometric examiner was not in office today, took tylenol and alleve with no effect PT ON BRIEF EXAM: vss, mild mid suprapaubic tenderness MRI reviewed from 01/03-- large fibroids largest measuring 10.5 cm PT ORDERED FOR: ua, u cx, upreg, percocet PT TO PROCEED TO THE ED 01/08/19 18:35 Discharge Disposition - Diagnosis Fibroids - Discharge Dispostion Last Admission D/C Date: 08/06/18 - Referrals Referrals: Coreen Garvin MD [Primary Care Provider] - - Patient Instructions - Post Discharge Activity
[2019-01-08] MEDS ORDERED: KETOROLAC TROMETHAMINE 60 MG/2 ML VIAL IM ONE (20:29)
[2019-01-08] MEDS ORDERED: KETOROLAC TROMETHAMINE 60 MG/2 ML VIAL ONE (20:31)
--- NOTE | 2019-01-08 20:39 | PDOC ---
History of Present Illness - General Chief Complaint: Pain Stated Complaint: ABD PAIN Time Seen by Provider: 01/08/19 18:31 History Source: Patient Exam Limitations: Clinical Condition - History of Present Illness Initial Comments: 01/08/19 20:45 Patient with history of uterine fibroids being followed up with TRAIN GATE ATTENDANT and being scheduled for myomectomy next month present with complaint of cramping lower abdominal pain with menstruation since 2 days ago. Patient report has been excessive bleeding with menstrual period due to uterine fibroids and pain with menstruation. Patient report using 10pads/day with her menstrual period which she is not fully soaked before she changed the pad. Denies dizziness, palpitations, urinary frequency, dysuria, SOB, lightheadedness, weakness, CP Timing/Duration: other (2 days) Past History - Past Medical History Allergies/Adverse Reactions: Allergies Allergy/AdvReac Type Severity Reaction Status Date / Time No Known Allergies Allergy Verified 01/08/19 18:40 Home Medications: Ambulatory Orders Docusate Sodium [Colace] 100 mg PO DAILY #30 capsule 08/06/18 Ferrous Sulfate [Iron] 325 mg PO DAILY #30 tablet 08/06/18 Ketorolac Tromethamine [Toradol] 10 mg PO TID PRN #21 tablet 01/08/19 Asthma: Yes (\) Cancer: No Cardiac Disorders: No COPD: No Diabetes: No HTN: No Seizures: No Thyroid Disease: No - Immunization History Immunization Up to Date: Yes - Suicide/Smoking/Psychosocial Hx Smoking History: Never smoked Have you smoked in the past 12 months: No Information on smoking cessation initiated: No Hx Alcohol Use: No Drug/Substance Use Hx: No Substance Use Type: None Hx Substance Use Treatment: No Review of Systems - Review of Systems Able to Perform ROS?: Yes Is the patient limited Hebrew proficient: No Constitutional: No: Chills, Fever, Malaise, Weakness HEENTM: No: Symptoms Reported, See HPI, Eye Pain, Blurred Vision, Tearing, Recent change in vision, Double Vision, Cataracts, Ear Pain, Ocular Prothesis, Ear Discharge, Nose Pain, Nose Congestion, Tinnitus, Nose Bleeding, Hearing Loss , Throat Pain, Throat Swelling, Mouth Pain, Dental Problems, Difficulty Swallowing, Mouth Swelling, Other Respiratory: No: Symptoms reported, See HPI, Cough, Orthopnea, Shortness of Breath, SOB with Exertion, SOB at Rest, Stridor, Wheezing, Productive cough, Hemoptysis, Other Cardiac (ROS): No: Symptoms Reported, See HPI, Chest Pain, Edema, Irregular Heart Rate, Lightheadedness, Palpitations, Syncope, Chest Tightness, Other ABD/GI: Yes: Symptoms Reported, See HPI, Abdominal cramping (intermittent cramping lower abdominal pain). No: Nausea, Vomiting : No: Symptoms Reported, Burning, Dysuria, Discharge, Frequency, Hematuria, Urgency Neurological: No: Symptoms reported, Headache, Weakness, Dizziness All Other Systems: Reviewed and Negative *Physical Exam - Vital Signs Last Vital Signs Temp Pulse Resp BP Pulse Ox 98.1 F 90 17 106/80 100 01/08/19 18:25 01/08/19 18:25 01/08/19 18:25 01/08/19 18:25 01/08/19 18:25 - Physical Exam General Appearance: Yes: Nourished, Appropriately Dressed. No: Apparent Distress HEENT: positive: Normal ENT Inspection Neck: positive: Supple Respiratory/Chest: positive: Lungs Clear, Normal Breath Sounds. negative: Respiratory Distress, Accessory Muscle Use Cardiovascular: positive: Regular Rhythm, Regular Rate. negative: Murmur Gastrointestinal/Abdominal: positive: Normal Bowel Sounds, Tender (mild TTP to left pelvic on deep palpation w/o guarding or rebound), Flat, Soft. negative: Organomegaly, Guarding, Rebound, Hernia, Mass Musculoskeletal: positive: Normal Inspection. negative: CVA Tenderness Extremity: positive: Normal Inspection Integumentary: positive: Normal Color Neurologic: positive: Fully Oriented, Alert, Normal Mood/Affect, Normal Response ED Treatment Course - Medications Given in the ED: ED Medications Discontinued Medications Generic Name Dose Route Start Last Admin Trade Name Freq PRN Reason Stop Dose Admin Ketorolac Tromethamine 60 mg 01/08/19 20:29 01/08/19 20:32 Toradol Injection - IM 01/08/19 20:30 60 mg ONCE ONE Administration Oxycodone/Acetaminophen 1 combo 01/08/19 18:34 01/08/19 20:31 Percocet 5/325 - PO 01/08/19 18:35 Not Given ONCE ONE Medical Decision Making - Medical Decision Making 01/08/19 20:48 Patient with history of uterine fibroids being followed up with TRAIN GATE ATTENDANT and being scheduled for myomectomy next month present with complaint of cramping lower abdominal pain with menstruation since 2 days ago. Patient report has been excessive bleeding with menstrual period due to uterine fibroids and pain with menstruation. Patient report using 10pads/day with her menstrual period which she is not fully soaked before she changed the pad. Denies dizziness, palpitations, urinary frequency, dysuria, SOB, lightheadedness, weakness, CP Exam significant for mild TTP to left pelvic region on deep palpation in a morbidly obese pt . no rebound or guarding Patient symptoms likely dysmenorrhea. Toradol 60mg IM given for pain. Patient stable for discharge on PO toradol prn for dysmenorrhea with TRAIN GATE ATTENDANT f/u. Pt discussed with patient and pt agrees with plan *DC/Admit/Observation/Transfer Diagnosis at time of Disposition: Fibroids, Dysmenorrhea - Discharge Dispostion Disposition: HOME Condition at time of disposition: Stable Decision to Admit order: No - Prescriptions Prescriptions: Ketorolac Tromethamine [Toradol] 10 mg PO TID PRN #21 tablet PRN Reason: pain - Referrals Referrals: Coreen Garvin MD [Primary Care Provider] - - Patient Instructions Printed Discharge Instructions: Dysmenorrhea (Alternative Therapy), DI for Dysmenorrhea Additional Instructions: Take prescribed medication as needed for pain. Follow-up with your TRAIN GATE ATTENDANT - Post Discharge Activity Forms/Work/School Notes: Back to Work
--- NOTE | 2019-01-08 20:48 | PDOC ---
*Physical Exam - Vital Signs Last Vital Signs Temp Pulse Resp BP Pulse Ox 98.1 F 90 17 106/80 100 01/08/19 18:25 01/08/19 18:25 01/08/19 18:25 01/08/19 18:25 01/08/19 18:25 ED Treatment Course - Medications Given in the ED: ED Medications Discontinued Medications Generic Name Dose Route Start Last Admin Trade Name Freq PRN Reason Stop Dose Admin Ketorolac Tromethamine 60 mg 01/08/19 20:29 01/08/19 20:32 Toradol Injection - IM 01/08/19 20:30 60 mg ONCE ONE Administration Oxycodone/Acetaminophen 1 combo 01/08/19 18:34 01/08/19 20:31 Percocet 5/325 - PO 01/08/19 18:35 Not Given ONCE ONE Medical Decision Making - Medical Decision Making 01/08/19 20:47 Case discussed and reviewed, agree with assessment and plan *DC/Admit/Observation/Transfer Diagnosis at time of Disposition: Fibroids, Dysmenorrhea - Discharge Dispostion Disposition: HOME Condition at time of disposition: Stable - Prescriptions Prescriptions: Ketorolac Tromethamine [Toradol] 10 mg PO TID PRN #21 tablet PRN Reason: pain - Referrals Referrals: Coreen Garvin MD [Primary Care Provider] - - Patient Instructions Printed Discharge Instructions: Dysmenorrhea (Alternative Therapy), DI for Dysmenorrhea Additional Instructions: Take prescribed medication as needed for pain. Follow-up with your STEELER - Post Discharge Activity Forms/Work/School Notes: Back to Work
== END 2019-01-08 20:50 | disposition home or self-care (01) ==
LOC: JER 18:13
PROC: 3E0233Z Introduction of Anti-inflammatory into Muscle, Percutaneous Approach (ICD-10-PCS; principal; 2019-01-08)
DX: N94.6 Dysmenorrhea, unspecified (principal); D25.9 Leiomyoma of uterus, unspecified
CPT/HCPCS: 99283-25

== ENCOUNTER 2019-01-31 21:33 | Emergency (ER) | payer OTHER ==
[2019-01-31 21:50] VITALS: BP 107/74; PULSE 94; TEMP 99; BMI 54.3
[2019-01-31] MEDS ORDERED: ALBUTEROL SO4 2.5/IPRATROPIUM 0.5 INH SOL 3 ML VIAL.NEB. NEB ONE ×2 (22:37→23:24)
--- NOTE | 2019-01-31 22:50 | PDOC ---
History of Present Illness - General Chief Complaint: Chest Pain Stated Complaint: CHEST PAIN Time Seen by Provider: 01/31/19 22:18 - History of Present Illness Initial Comments: Bishnu Leavitt is a 33yo woman with a PMH of asthma, chronic anemia 2/2 uterine fibroids, morbid obesity who presents with acute onset of 7/10 midsternal chest pain while at work tonight. 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 She used her albuterol inhaler with resolution of the wheezing but continued to have pain. She says that it feels like someone was "stabbing her in the heart." Ms Leavitt reports that EMS gave her "something to chew" (aspirin) on the way to the ED, and she no longer has any symptoms. She is not able to report whether she has had any similar symptoms in the past, but she does say that she had an echo completed this year that she was told was fine. Past History - Past Medical History Allergies/Adverse Reactions: Allergies Allergy/AdvReac Type Severity Reaction Status Date / Time No Known Allergies Allergy Verified 01/08/19 18:40 Home Medications: Ambulatory Orders Docusate Sodium [Colace] 100 mg PO DAILY #30 capsule 08/06/18 Ferrous Sulfate [Iron] 325 mg PO DAILY #30 tablet 08/06/18 Ketorolac Tromethamine [Toradol] 10 mg PO TID PRN #21 tablet 01/08/19 Asthma: Yes (\\) Cancer: No Cardiac Disorders: No COPD: No Diabetes: No HTN: No Seizures: No Thyroid Disease: No - Reproductive History Therapeutic (s) & number: No - Immunization History Immunization Up to Date: Yes - Suicide/Smoking/Psychosocial Hx Smoking History: Never smoked Have you smoked in the past 12 months: No Hx Alcohol Use: No Drug/Substance Use Hx: No Substance Use Type: None Hx Substance Use Treatment: No Review of Systems - Review of Systems Comments:: General: No fevers, no chills, no weight or appetite change, no malaise HEENT: No changes in vision, no changes in hearing, no congestion, no sore throat CV: + chest pain, no palpitations, no LE edema Pulm: No SOB, no cough, no wheezing GI: No nausea or vomiting, no change in bowel habits, no melena : No frequency, no urgency, no dysuria Musc: No back pain, no joint swelling, no recent injury Skin: No rash, no lesions, no erythema Endo: No excessive thirst, no heat/cold intolerance Heme: No unusual bruising or bleeding, no swollen glands Neuro: No syncope, no numbness/tingling, no focal weakness Vasc: No claudication Psych: No recent change in mood, no SI or HI *Physical Exam - Vital Signs Last Vital Signs Temp Pulse Resp BP Pulse Ox 99 F 94 H 19 107/74 99 01/31/19 21:45 01/31/19 21:45 01/31/19 21:45 01/31/19 21:45 01/31/19 21:45 - Physical Exam Comments: General: Morbidly obese, comfortable, no acute distress HEENT: PERRL, EOMI, MMM, voice normal, normal neck ROM Cards: RRR, no murmur appreciated. No reproducible pain Pulm: Comfortable on room air. Poorly appreciated breath sounds due to body habitus Abd: Soft, nontender, nondistended Ext: Atraumatic. No LE edema. ROM intact. WWP Skin: Normal color, no rashes or lesions Neuro: A&Ox3, CN grossly intact, normal speech, motor/sensory grossly intact and symmetric Psych: Mood appropriate to situation ED Treatment Course - LABORATORY CBC & Chemistry Diagram: 01/31/19 23:26 01/31/19 23:26 Medical Decision Making - Medical Decision Making 01/31/19 22:37 Bishnu Leavitt is a 33yo woman with a PMH of asthma, chronic anemia 2/2 uterine fibroids, morbid obesity who presents with acute onset of 7/10 midsternal chest pain while at work tonight. She additionally reports wheezing, and her symptoms improved after albuterol. - Most likely sternal pain secondary to asthma, but given obesity and poor exam will send 1 trop - EKG NSR, HR 95, normal axis, normal intervals 02/01/19 01:09 - Labs reviewed, no concerning abnormalities - Trop undetectable - Will d/c home with PMD follow up Discussed with Dr Lucille Dang PGY2 *DC/Admit/Observation/Transfer Diagnosis at time of Disposition: Substernal chest pain, Morbid obesity - Discharge Dispostion Disposition: HOME Condition at time of disposition: Stable Decision to Admit order: No - Referrals Referrals: [facility] [place] [Provider Group] - Patient Instructions Additional Instructions: Discharge Instructions: You were seen in the emergency department for chest pain. This pain resolved before you go to to the emergency department. It may be due to your asthma, but you may need additional evaluation by a specialist. Please continue to take all of your regular medications as prescribed. You will need to see your regular doctor within the next 2-3 days. If you need to establish care, you have been given contact information for the [facility] clinic. You may need additional testing or adjustment of your asthma medications. Seek immediate care if you have worsening symptoms, you are unable to breath, you have chest pain with exercise, or you have any other medical emergency. - Post Discharge Activity Forms/Work/School Notes: Back to Work
[2019-02-01 00:18] LABS: ALBUMIN 2.8 g/dl (3.4-5.0); ALK PHOS 85 U/L (45-117); ANION GAP 7 MMOL/L (8-16); BILIRUBIN,TOTAL 0.2 mg/dL (0.2-1); BLOOD UREA NITROGEN 10.5 mg/dL (7-18); CALCIUM 7.4 mg/dL (8.5-10.1); CHLORIDE 110 mmol/L (98-107); CO2 23 mmol/L (21-32); CREATININE 0.5 mg/dL (0.55-1.3); GLUCOSE,RANDOM 100 mg/dL (74-106); POTASSIUM 3.6 mmol/L (3.5-5.1); SGOT/AST 17 U/L (15-37); SGPT/ALT 16 U/L (13-61); SODIUM 140 mmol/L (136-145); TOT PROT 6.2 g/dl (6.4-8.2)
[2019-02-01 00:57] LABS: BASO % 0.2 % (0-2.0); EOS % 2.4 % (0-4.5); HEMOGLOBIN 9.8 GM/dL (10.7-15.3); LYMPH % 10.8 % (8-40); MCH 21.1 pg (25.7-33.7); MCHC 29.7 g/dl (32.0-36.0); MEAN CELL VOLUME 70.9 fl (80-96); MONO % 7.1 % (3.8-10.2); NEUT % 79.5 % (42.8-82.8); PLATELET COUNT 265 K/MM3 (134-434); RBC 4.65 M/mm3 (3.60-5.2); RDW 19.3 % (11.6-15.6); WHITE BLOOD COUNT 9.4 K/mm3 (4.0-10.0)
[2019-02-01 03:03] LABS: ANISOCYTOSIS 2+; MACROCYTOSIS 0; PLATELET ESTIMATE NORMAL
--- NOTE | 2019-02-01 16:56 | EKG ---
Test Reason : Blood Pressure : / mmHG Vent. Rate : 095 BPM Atrial Rate : 095 BPM P-R Int : 162 ms QRS Dur : 096 ms QT Int : 350 ms P-R-T Axes : 026 011 010 degrees QTc Int : 439 ms NORMAL SINUS RHYTHM NORMAL ECG WHEN COMPARED WITH ECG OF 05-AUG-2018 15:43, NO SIGNIFICANT CHANGE WAS FOUND Confirmed by MD BRIONES MOYSES ([id number]) on 02/01/2019 4:56:15 PM Referred By: Confirmed By:SHONNA BRIONES MD
== END 2019-02-01 01:34 | disposition home or self-care (01) ==
LOC: JER 21:33
PROC: 3E0F7GC Introduction of Other Therapeutic Substance into Respiratory Tract, Via Natural or Artificial Opening (ICD-10-PCS; principal; 2019-01-31)
DX: R07.9 Chest pain, unspecified (principal); J45.909 Unspecified asthma, uncomplicated; D64.9 Anemia, unspecified; E66.01 Morbid (severe) obesity due to excess calories; Z68.43 Body mass index [BMI] 50.0-59.9, adult
CPT/HCPCS: 36415; 80053; 82550; 84484; 85025; 93005; 93010; 94640; 99283-25

== ENCOUNTER 2023-09-11 18:18 | Emergency (ER) | payer OTHER ==
[2023-09-11 18:21] VITALS: BP 110/63; PULSE 100; RESP 18; TEMP 98; BMI 53.2
[2023-09-11 19:25] LABS: EPI CELLS >36 /uL (0-25.1); HYALINE CASTS 18 /uL (0-3.1); URINE APPEARANCE CLOUDY; URINE BACTERIA 5889 /uL (0-1359); URINE BILIRUBIN NEGATIVE (NEGATIVE); URINE COLOR DK YELLOW; URINE GLUCOSE (UA) 3+ (NEGATIVE); URINE KETONE TRACE (NEGATIVE); URINE LEUK ESTERASE NEGATIVE (NEGATIVE); URINE NITRITE NEGATIVE (NEGATIVE); URINE PROTEIN 1+ (NEGATIVE)
[2023-09-11 19:33] LABS: HCG,QUALITATIVE URINE Negative
[2023-09-11 19:53] LABS: URINE RBC 23.3 /uL (0-23.9)
[2023-09-11 20:08] LABS: EPI CELLS 24 /uL (0-25.1); HYALINE CASTS 9 /uL (0-3.1); PH,URINE 5.5 (5.0-8.0); URINE APPEARANCE CLOUDY; URINE BILIRUBIN NEGATIVE (NEGATIVE); URINE COLOR YELLOW; URINE GLUCOSE (UA) 3+ (NEGATIVE); URINE KETONE TRACE (NEGATIVE); URINE LEUK ESTERASE TRACE (NEGATIVE); URINE NITRITE NEGATIVE (NEGATIVE); URINE PROTEIN 1+ (NEGATIVE); URINE RBC 31 /uL (0-23.9); URINE WBC 624 /uL (0-25.8)
[2023-09-11 20:29] LABS: URINE BACTERIA PRESENT /uL (0-1359)
[2023-09-11] MEDS ORDERED: CEPHALEXIN MONOHYDRATE 500 MG CAPSULE (UD) ONE (21:23)
[2023-09-11] MEDS: CEPHALEXIN MONOHYDRATE 500 MG CAPSULE (UD) PO ONE (21:24)
== END 2023-09-11 21:51 | disposition home or self-care (01) ==
LOC: JERFT 18:18
DX: R39.15 Urgency of urination (principal); R30.0 Dysuria; N39.0 Urinary tract infection, site not specified; R73.9 Hyperglycemia, unspecified
CPT/HCPCS: 36415; 81003; 82962; 84703; 87070; 87077; 87086; 87205; 87491; 87591; 87661; 99283-25

== ENCOUNTER 2024-01-13 11:30 | Emergency (ER) | payer OTHER ==
[2024-01-13 11:37] VITALS: BMI 54.9
[2024-01-13] MEDS ORDERED: ACETAMINOPHEN INJECTION 100 ML ONE (12:52)
[2024-01-13] MEDS ORDERED: FAMOTIDINE 20 MG/50 ML IVPB 20 MG/50 ML MG IVPB ONE (12:52)
[2024-01-13] MEDS ORDERED: MAG HYDROX/AL HYDROX/SIMETH 30 ML UNIT-DOSE CUP ONE (12:52)
[2024-01-13] MEDS: MAG HYDROX/AL HYDROX/SIMETH -MYLANTA- ORAL SUSPENSION PO ONE (13:12)
[2024-01-13] MEDS: ACETAMINOPHEN 1000 MG/100 ML BAG IVPB ONE (13:13)
[2024-01-13] MEDS: FAMOTIDINE 20 MG/50 ML IVPB 20 MG/50 ML MG IVPB ONE (13:13)
[2024-01-13 13:19] LABS: HEMOGLOBIN 12.9 GM/dL (10.7-15.3); MCHC 32.2 g/dl (32.0-36.0); MEAN CELL VOLUME 77.7 fl (80-96); PLATELET COUNT 344 10^3/uL (134-434); RBC 5.15 M/mm3 (3.60-5.2); RDW 14.2 % (11.6-15.6); WHITE BLOOD COUNT 9.8 K/mm3 (4.0-10.0)
[2024-01-13 13:46] LABS: POTASSIUM 4.7 mmol/L (3.5-5.1)
[2024-01-13 13:48] LABS: CALCIUM 9.6 mg/dL (8.5-10.1)
[2024-01-13 13:49] LABS: ALBUMIN 3.4 g/dl (3.4-5.0); BLOOD UREA NITROGEN 15.3 mg/dL (7-18)
[2024-01-13 13:52] LABS: CREATININE 0.7 mg/dL (0.55-1.3)
[2024-01-13 13:53] LABS: BILIRUBIN,TOTAL 0.2 mg/dL (0.2-1); TOT PROT 7.9 g/dl (6.4-8.2)
[2024-01-13 15:58] VITALS: BP 129/87; PULSE 82; RESP 20; TEMP 98
== END 2024-01-13 16:56 | disposition home or self-care (01) ==
LOC: JER 11:30
PROC: 3E033GC Introduction of Other Therapeutic Substance into Peripheral Vein, Percutaneous Approach (ICD-10-PCS; principal; 2024-01-13)
PROC: 3E033NZ Introduction of Analgesics, Hypnotics, Sedatives into Peripheral Vein, Percutaneous Approach (ICD-10-PCS; 2024-01-13)
DX: R10.13 Epigastric pain (principal)
CPT/HCPCS: 36415; 76705-TC; 80053; 83690; 85027; 93005; 93010; 99284-25; J0131

== ENCOUNTER 2025-02-08 09:18 | Emergency (ER) | payer OTHER ==
[2025-02-08 09:30] VITALS: BP 131/64; PULSE 76; RESP 18; TEMP 98.2; BMI 58.3
[2025-02-08 11:00] LABS: MCHC 31.1 g/dl (32.2-35.5); MEAN CELL VOLUME 80.1 fl (79.4-94.8); MEAN PLT VOLUME 9.8 fl (9.4-12.3); RDW 13.5 % (12.1-16.8)
[2025-02-08 11:04] LABS: EPI CELLS 23 /uL (0-25.1); HYALINE CASTS 5 /uL (0-3.1); URINE APPEARANCE CLOUDY; URINE BACTERIA 1719 /uL (0-1359); URINE BILIRUBIN NEGATIVE (NEGATIVE); URINE COLOR DK YELLOW; URINE GLUCOSE (UA) NEGATIVE (NEGATIVE); URINE KETONE 1+ (NEGATIVE); URINE LEUK ESTERASE 2+ (NEGATIVE); URINE NITRITE NEGATIVE (NEGATIVE); URINE PROTEIN TRACE (NEGATIVE); URINE RBC 38 /uL (0-23.9); URINE UROBILINOGEN 0.2 mg/dL (0.2-1.0); URINE WBC 978 /uL (0-25.8)
[2025-02-08] MEDS ORDERED: ONDANSETRON 4 MG/2 ML VIAL ONE (11:10)
[2025-02-08] MEDS ORDERED: CEFTRIAXONE 1 GM/50 ML BAG ONE (11:10)
[2025-02-08 11:22] LABS: GLUCOSE,RANDOM 198.0 mg/dL (74-106)
[2025-02-08 11:23] LABS: CO2 25.0 mmol/L (21-32); TOT PROT 8.1 g/dl (6.4-8.2)
[2025-02-08] MEDS: SODIUM CHLORIDE 0.9% 1000 ML INFUS.BAG IV ONE (11:23)
[2025-02-08] MEDS: ONDANSETRON 4 MG/2 ML VIAL IVPUSH ONE (11:24)
[2025-02-08] MEDS: CEFTRIAXONE 1,000 MG in DEXTROSE 5%-WATER - 50 ML IVPB ONE (11:24)
[2025-02-08 11:25] LABS: ALK PHOS 106.0 U/L (40-150)
[2025-02-08 11:28] LABS: CREATININE 0.58 mg/dL (0.55-1.3); SGOT/AST 15.0 U/L (5-34); SGPT/ALT 19.0 U/L (0-55)
[2025-02-08 12:14] LABS: HCV DIAGNOSTIC IN-HOUSE W/RFLX NON-REACTIVE (NONREACTIVE); HIV INTERPRETATION NEGATIVE (NEGATIVE)
== END 2025-02-08 13:21 | disposition home or self-care (01) ==
LOC: JER 09:18
PROC: 3E03329 Introduction of Other Anti-infective into Peripheral Vein, Percutaneous Approach (ICD-10-PCS; principal; 2025-02-08)
PROC: 3E033GC Introduction of Other Therapeutic Substance into Peripheral Vein, Percutaneous Approach (ICD-10-PCS; 2025-02-08)
DX: N39.0 Urinary tract infection, site not specified (principal); R19.7 Diarrhea, unspecified; R11.2 Nausea with vomiting, unspecified; R42 Dizziness and giddiness; R35.0 Frequency of micturition
CPT/HCPCS: 36415; 80053; 81003; 82962; 83735; 85027; 86803; 87086; 87389; 87637-QW; 93005; 93010; 99284-25